=== PATIENT | male | born 1975 | race Two or more races ===

== ENCOUNTER → 2021-06-01 | Outpatient (CLI) | payer MEDICARE | END | disposition home or self-care (01) | LOC: Rad HDHVI 13:50 | PROVIDERS: ATTEND Internal Medicine Cardiovascular Disease | DX: R06.02 Shortness of breath (principal); R42 Dizziness and giddiness | CPT/HCPCS: 71046 ==

== ENCOUNTER → 2021-06-17 | Outpatient (CLI) | payer MEDICARE ==
[~2021-06-17] MED LIST: SODIUM CHLORIDE 0.9% 500 ML IV ONE; SODIUM FERR GLUC 62.5MG/5ML 125 MG in SODIUM CHL 0.9% 100 ML IV ONE; SODIUM FERRIC GLUC CPLEX 62.5MG/5ML VIAL IV ONE
[2021-06-17 11:40] VITALS: BP 110/61
[2021-06-17 12:45] LABS: Basophils # (auto) 0 10 ^3/uL (0-0.2); Basophils % (auto) 0.6 % (0.0-2.0); Eosinophils # (auto) 0.1 10 ^3/uL (0-0.8); Hematocrit 29.1 % (41.0-53.0); Hemoglobin 9.8 g/dL (13.5-17.5); Lymphocytes % (auto) 14.4 % (10.0-50.0); Mean Corpuscular Hemoglobin 32.9 pg (28.0-32.0); Mean Corpuscular Hgb Conc. 33.7 g/dL (32.0-36.0); Mean Corpuscular Volume 97.8 fL (80.0-100.0); Monocytes # (auto) 0.5 10 ^3/uL (0-1.3); Monocytes % (auto) 6.9 % (0.0-12.0); Neutrophils # (auto) 5.1 10 ^3/uL (1.6-8.6); Neutrophils % (auto) 77.1 % (37.0-80.0); Red Blood Cells 2.98 10^6/uL (4.5-5.90); Red Cell Distribution Width 14.5 % (11.8-14.3); White Blood Cell 6.7 10^3/uL (4.4-10.8)
[2021-06-17 12:54] LABS: BUN/Creatinine Ratio 3.2; Calcium 9.4 mg/dL (8.5-10.1); Magnesium 2.4 mg/dL (1.6-2.6); Potassium 3.6 mmol/L (3.5-5.1)
[2021-06-17 14:40] VITALS: BP 131/57
== END | disposition home or self-care (01) ==
LOC: CHF HDHVI 11:41
PROVIDERS: ATTEND Internal Medicine Cardiovascular Disease
DX: E86.0 Dehydration (principal); D64.9 Anemia, unspecified; N28.9 Disorder of kidney and ureter, unspecified
CPT/HCPCS: 36415; 80048; 83735; 85025; 96361; 96365; G0463; J2916; J7040

== ENCOUNTER → 2021-06-24 | Outpatient (CLI) | payer MEDICARE ==
[~2021-06-24] MED LIST changes: +APIX2.5T PO; +ASPI1TAB20 PO; +ATOR10TA52 PO; +CALC0.25 PO; +FAMO20TA10 PO; +FEBU40TA PO; +FENO54TA4 PO; +FINA5TAB4 PO; +FLUD0.1T2 PO; +FURO20TA3 PO; +METO25TA5 PO; +PANT1INJ3 IV; +PAR20T PO; +SACU1TAB PO; +SEVE800T8 PO; -SODIUM CHLORIDE 0.9% 500 ML IV ONE; +TAMS0.4C36 PO
[2021-06-24 14:40] VITALS: BP 114/68
== END | disposition home or self-care (01) ==
LOC: CHF HDHVI 14:41
PROVIDERS: ATTEND Internal Medicine Cardiovascular Disease
DX: D64.9 Anemia, unspecified (principal); K92.2 Gastrointestinal hemorrhage, unspecified
CPT/HCPCS: 96365; 96366; G0463; J2916

== ENCOUNTER → 2021-07-01 | Outpatient (CLI) | payer MEDICARE ==
[~2021-07-01] MED LIST changes: +SODIUM CHLORIDE 0.9% IV ONE; -SODIUM FERR GLUC 62.5MG/5ML 125 MG in SODIUM CHL 0.9% 100 ML IV ONE; +SODIUM FERRIC GLUCONATE IV ONE
[2021-07-01 12:35] VITALS: BP 113/67
[2021-07-01 15:05] VITALS: BP 109/65
== END | disposition home or self-care (01) ==
LOC: CHF HDHVI 13:05
PROVIDERS: ATTEND Internal Medicine Cardiovascular Disease
DX: D64.9 Anemia, unspecified (principal)
CPT/HCPCS: 96365; 96366; G0463; J2916

== ENCOUNTER → 2021-07-02 | Day surgery (SDC) | payer MEDICARE, MEDICAID ==
[~2021-07-02] VITALS: Ht 170.2 cm; Wt 60.3 kg
[~2021-07-02] MED LIST changes: +LIDOCAINE VISCOUS 2% 15ML UD ONE; -SODIUM CHLORIDE 0.9% IV ONE; +SODIUM CHLORIDE LOCK 10 ML ONE; -SODIUM FERRIC GLUC CPLEX 62.5MG/5ML VIAL IV ONE; -SODIUM FERRIC GLUCONATE IV ONE; +diphenhdrAMINE HCL 50 MG/1 ML VL ONE
[2021-07-02] MEDS: fentaNYL CITRATE 100 MCG/2 ML VL ONE ×2 (09:47→09:50)
[2021-07-02] MEDS: MIDAZOLAM HCL 5 MG/ML-1ML VIAL ONE ×2 (09:47→09:50)
[2021-07-02 10:25] VITALS: BP 111/53
== END | disposition home or self-care (01) ==
LOC: GI 08:48
PROVIDERS: ATTEND Internal Medicine Gastroenterology
DX: K92.2 Gastrointestinal hemorrhage, unspecified (principal); I13.0 Hypertensive heart and chronic kidney disease with heart failure and stage 1 through stage 4 chronic kidney disease, or unspecified chronic kidney disease; I50.9 Heart failure, unspecified; N18.9 Chronic kidney disease, unspecified; Z90.49 Acquired absence of other specified parts of digestive tract; Z98.890 Other specified postprocedural states; Z79.899 Other long term (current) drug therapy; Z20.822 Contact with and (suspected) exposure to COVID-19
CPT/HCPCS: 43235; J1200; J2250; J3010; J7030; U0003; G0500

== ENCOUNTER → 2021-11-23 | Outpatient (CLI) | payer MEDICARE, MEDICAID ==
[~2021-11-23] MED LIST changes: -LIDOCAINE VISCOUS 2% 15ML UD ONE; -SODIUM CHLORIDE LOCK 10 ML ONE; -diphenhdrAMINE HCL 50 MG/1 ML VL ONE
[2021-11-23 16:09] LABS: Basophils # (auto) 0 10 ^3/uL (0-0.2); Basophils % (auto) 0.4 % (0.0-2.0); Eosinophils # (auto) 0.1 10 ^3/uL (0-0.8); Eosinophils % (auto) 2.1 % (0.0-7.0); Hematocrit 29.2 % (41.0-53.0); Hemoglobin 9.7 g/dL (13.5-17.5); Lymphocytes # (auto) 0.8 10 ^3/uL (0.4-5.4); Lymphocytes % (auto) 12.9 % (10.0-50.0); Mean Corpuscular Hgb Conc. 33.1 g/dL (32.0-36.0); Mean Corpuscular Volume 99.5 fL (80.0-100.0); Monocytes # (auto) 0.5 10 ^3/uL (0-1.3); Monocytes % (auto) 8.4 % (0.0-12.0); Neutrophils # (auto) 4.6 10 ^3/uL (1.6-8.6); Neutrophils % (auto) 76.2 % (37.0-80.0); Nucleated Red Blood Cells % 0.1 %; Red Blood Cells 2.94 10^6/uL (4.5-5.90); Red Cell Distribution Width 17.4 % (11.8-14.3)
[2021-11-23 16:20] LABS: Calcium 9.1 mg/dL (8.5-10.1); Potassium 3.5 mmol/L (3.5-5.1)
[2021-11-23 16:22] LABS: BUN/Creatinine Ratio 6.3
== END | disposition home or self-care (01) ==
LOC: Rad HDHVI 11:03
PROVIDERS: ATTEND Internal Medicine Cardiovascular Disease
DX: I51.7 Cardiomegaly (principal); D64.9 Anemia, unspecified; Z95.0 Presence of cardiac pacemaker
CPT/HCPCS: 36415; 71046; 80048; 85025

== ENCOUNTER → 2021-11-30 | Outpatient (CLI) | payer MEDICARE, MEDICAID | END | disposition home or self-care (01) | LOC: Rad HDHVI 10:03 | PROVIDERS: ATTEND Internal Medicine Cardiovascular Disease | DX: I34.0 Nonrheumatic mitral (valve) insufficiency (principal); R42 Dizziness and giddiness; R00.1 Bradycardia, unspecified | CPT/HCPCS: 93306 ==

== ENCOUNTER → 2021-12-14 | Outpatient (CLI) | payer MEDICARE, MEDICAID ==
[2021-12-14 16:17] LABS: Basophils # (auto) 0 10 ^3/uL (0-0.2); Basophils % (auto) 0.6 % (0.0-2.0); Eosinophils # (auto) 0.1 10 ^3/uL (0-0.8); Lymphocytes # (auto) 0.7 10 ^3/uL (0.4-5.4); Monocytes # (auto) 0.4 10 ^3/uL (0-1.3); Neutrophils # (auto) 4.5 10 ^3/uL (1.6-8.6); Red Cell Distribution Width 15.3 % (11.8-14.3); White Blood Cell 5.8 10^3/uL (4.4-10.8)
[2021-12-14 16:18] LABS: Eosinophils % (auto) 1.8 % (0.0-7.0); Hematocrit 32.2 % (41.0-53.0); Hemoglobin 10.4 g/dL (13.5-17.5); Lymphocytes % (auto) 12.5 % (10.0-50.0); Mean Corpuscular Hemoglobin 31.9 pg (28.0-32.0); Mean Corpuscular Hgb Conc. 32.3 g/dL (32.0-36.0); Mean Corpuscular Volume 98.8 fL (80.0-100.0); Monocytes % (auto) 7.6 % (0.0-12.0); Neutrophils % (auto) 77.5 % (37.0-80.0); Nucleated Red Blood Cells % 0.1 %; Red Blood Cells 3.26 10^6/uL (4.5-5.90)
== END | disposition home or self-care (01) ==
LOC: LAB 10:42
PROVIDERS: ATTEND Internal Medicine Cardiovascular Disease
DX: Z79.899 Other long term (current) drug therapy (principal)
CPT/HCPCS: 36415; 80162; 85025

== ENCOUNTER → 2022-06-17 | Day surgery (SDC) | payer MEDICARE, MEDICAID ==
[2022-06-16 11:47] LABS: Basophils # (auto) 0.1 10 ^3/uL (0-0.2); Basophils % (auto) 1.1 % (0.0-2.0); Eosinophils # (auto) 0.1 10 ^3/uL (0-0.8); Eosinophils % (auto) 2.3 % (0.0-7.0); Hematocrit 33.7 % (41.0-53.0); Hemoglobin 11.3 g/dL (13.5-17.5); Lymphocytes # (auto) 0.9 10 ^3/uL (0.4-5.4); Lymphocytes % (auto) 15.8 % (10.0-50.0); Mean Corpuscular Hemoglobin 33.2 pg (28.0-32.0); Mean Corpuscular Hgb Conc. 33.4 g/dL (32.0-36.0); Mean Corpuscular Volume 99.4 fL (80.0-100.0); Monocytes # (auto) 0.5 10 ^3/uL (0-1.3); Monocytes % (auto) 8.7 % (0.0-12.0); Neutrophils # (auto) 4.1 10 ^3/uL (1.6-8.6); Neutrophils % (auto) 72.1 % (37.0-80.0); Red Blood Cells 3.39 10^6/uL (4.5-5.90); Red Cell Distribution Width 14.9 % (11.8-14.3); White Blood Cell 5.6 10^3/uL (4.4-10.8)
[2022-06-16 12:01] LABS: INR 1.18 (0.9-1.15); Partial Thromboplastin Time 28.5 sec (24.6-33.4)
[2022-06-16 12:40] LABS: BUN/Creatinine Ratio 4.8; Potassium 3.8 mmol/L (3.5-5.1)
[2022-06-16 12:41] LABS: Calcium 8.3 mg/dL (8.5-10.1)
[2022-06-16 12:43] LABS: Total Protein 6.6 g/dL (6.4-8.2)
[~2022-06-17] VITALS: Ht 170.2 cm; Wt 55.3 kg
[~2022-06-17] MED LIST changes: +diphenhdrAMINE HCL 50 MG/1 ML VL ONE
[2022-06-17] MEDS: fentaNYL CITRATE 100 MCG/2 ML VL ONE ×2 (10:43→10:52)
[2022-06-17] MEDS: MIDAZOLAM HCL 2MG/2ML 2ml VIAL (1mg/ml) ONE ×2 (10:43→10:52)
[2022-06-17 12:10] VITALS: BP 113/75
== END | disposition home or self-care (01) ==
LOC: GI 09:32 → EDUNIT# 10:15
PROVIDERS: ATTEND Internal Medicine Gastroenterology
DX: K62.5 Hemorrhage of anus and rectum (principal); K52.89 Other specified noninfective gastroenteritis and colitis; K63.5 Polyp of colon; K57.30 Diverticulosis of large intestine without perforation or abscess without bleeding; K64.8 Other hemorrhoids; N18.4 Chronic kidney disease, stage 4 (severe); Z99.2 Dependence on renal dialysis; Z86.2 Personal history of diseases of the blood and blood-forming organs and certain disorders involving the immune mechanism; Z95.0 Presence of cardiac pacemaker; Z98.890 Other specified postprocedural states; Z79.82 Long term (current) use of aspirin; Z20.822 Contact with and (suspected) exposure to COVID-19
CPT/HCPCS: 36415; 45380; 45385; 80053; 85025; 85610; 85730; 88305; J1200; J2250; J3010; J7030; U0003; 99152; 99153

== ENCOUNTER 2022-09-15 22:40 | Emergency (ER) | payer MEDICARE, OTHER ==
[~2022-09-15] VITALS: Ht 170.2 cm; Wt 54.5 kg
[~2022-09-15 22:40] MED LIST changes: -diphenhdrAMINE HCL 50 MG/1 ML VL ONE
[2022-09-15] MEDS ORDERED: ACCU-CHEK COMFORT CURVE STRIP VI ONE (23:00)
[2022-09-15] MEDS ORDERED: SODIUM CHLORIDE 0.9% 1,000 ML IV ONE (23:15)
[2022-09-15] MEDS ORDERED: PANTOPRAZOLE 80 MG in SODIUM CHL 0.9% 100 ML IV ONE (23:15)
[2022-09-15] MEDS ORDERED: OCTREOTIDE ACETATE 500 MCG in SODIUM CHL 0.9% 99 ML IV SCH (23:15)
[2022-09-15] MEDS ORDERED: cefTRIAXone 1GM/50ML D5W 50 ML IV ONE (23:15)
[2022-09-15] MEDS ORDERED: PANTOPRAZOLE 40mg/50ML NS AE 50 ML IV ONE (23:15)
[2022-09-15] MEDS ORDERED: OCTREOTIDE ACETATE 100 MCG in SODIUM CHL 0.9% 50 ML IV ONE (23:15)
[2022-09-15] MEDS ORDERED: IOHEXOL 350 MG/ML 100ML IJ ONE (23:16)
[2022-09-15 23:42] LABS: Basophils # (auto) 0 10 ^3/uL (0-0.2); Basophils % (auto) 0.2 % (0.0-2.0); Eosinophils # (auto) 0 10 ^3/uL (0-0.8); Eosinophils % (auto) 0.1 % (0.0-7.0); Hematocrit 12.6 % (41.0-53.0); Mean Corpuscular Hgb Conc. 33.3 g/dL (32.0-36.0); Monocytes # (auto) 0.9 10 ^3/uL (0-1.3); Monocytes % (auto) 7.2 % (0.0-12.0); Nucleated Red Blood Cells % 0.1 %
[2022-09-15 23:44] LABS: Lymphocytes # (auto) 1.4 10 ^3/uL (0.4-5.4); Lymphocytes % (auto) 11.1 % (10.0-50.0); Mean Corpuscular Hemoglobin 34.8 pg (28.0-32.0); Mean Corpuscular Volume 104.6 fL (80.0-100.0); Neutrophils % (auto) 81.4 % (37.0-80.0); Red Cell Distribution Width 19.9 % (11.8-14.3); White Blood Cell 12.3 10^3/uL (4.4-10.8)
[2022-09-15 23:47] LABS: INR 1.93 (0.9-1.15)
[2022-09-15 23:54] LABS: BUN/Creatinine Ratio 11.5 (10.0-20.0); Calcium 8.3 mg/dL (8.5-10.1); Hemoglobin 4.2 g/dL (13.5-17.5); Lactic Acid w/Reflex 4.2 mmol/L (0.4-2.0); Potassium 3.9 mmol/L (3.5-5.1)
[2022-09-15] MEDS ORDERED: ROCURONIUM 10MG/ML 10ML VIAL IV ONE (23:55)
[2022-09-15] MEDS ORDERED: ETOMIDATE (2MG/ML) 20ML VIAL IV ONE (23:56)
[2022-09-15] MEDS ORDERED: CALCIUM CHLOR(10%) 100MG/ML 10ML SYRINGE IV ONE (23:59)
[2022-09-15] MEDS ORDERED: SODIUM BICARBONATE 8.4 % INJ 50ML VIAL IV ONE (23:59)
[2022-09-15] MEDS ORDERED: ATROPINE SULF 0.5 MG/5ML SYR ONE (23:59)
[2022-09-16 00:03] LABS: Bilirubin, Total 0.8 mg/dL (0.2-1.0); Total Protein 4.2 g/dL (6.4-8.2)
[2022-09-16] MEDS ORDERED: EPINEPHrine HCL 250 ML IV ONE (00:07)
[2022-09-16] MEDS ORDERED: IOHEXOL 350 MG/ML 100ML IJ ONE (00:14)
[2022-09-16] MEDS ORDERED: EPINEPHrine HCL 250 ML IV SCH (00:15)
[2022-09-16] MEDS ORDERED: AMIODARONE 450mg/250ml AE 250 ML IV ONE (00:18)
[2022-09-16] MEDS ORDERED: CALCIUM CHLOR(10%) 100MG/ML 10ML SYRINGE IV ONE (00:22)
[2022-09-16] MEDS ORDERED: SODIUM BICARBONATE 8.4 % INJ 50ML VIAL IV ONE (00:23)
[2022-09-16] MEDS ORDERED: EPINEPHrine HCL 1 MG/10 ML SYRG ONE ×3 (00:35→00:54)
[2022-09-16] MEDS ORDERED: TRANEXAMIC ACID 10 ML ONE (00:38)
[2022-09-16] MEDS ORDERED: NOREPINEPHRINE 8 MG/250ML KIT 250 ML IV ONE (00:44)
[2022-09-16] MEDS ORDERED: TRANEXAMIC ACID 1,000 MG in SODIUM CHL 0.9% 100 ML IV ONE (00:45)
[2022-09-16 01:00] VITALS: BP 171/136
[2022-09-16] MEDS ORDERED: ETOMIDATE (2MG/ML) 20ML VIAL IV ONE (06:15)
[2022-09-16] MEDS ORDERED: ROCURONIUM 10MG/ML 10ML VIAL IV ONE (06:15)
== END 2022-09-16 03:36 ==
LOC: ER 22:40
DX: I13.2 Hypertensive heart and chronic kidney disease with heart failure and with stage 5 chronic kidney disease, or end stage renal disease (principal); N18.6 End stage renal disease; I50.9 Heart failure, unspecified; R57.8 Other shock; H91.90 Unspecified hearing loss, unspecified ear; Z98.61 Coronary angioplasty status
CPT/HCPCS: 31500; 36415; 36430; 36556; 70450; 71045; 71260; 74177; 80053; 82140; 83605; 83880; 84484; 85025; 85610; 86850; 86900; 86901; 86920; 92950; 93005; 96365; 96368; 99291; C9113; J0171; J0282; J0461; J0696; P9016; P9035; Q9967